=== PATIENT | male | born 1950 | race Caucasian/White ===

== ENCOUNTER → 2017-03-10 | Outpatient (CLI) | payer MEDICARE, BC ==
[~2017-03-10] MED LIST: ASPIRIN1 GM PO; ASPIRIN81 M1; CRESTOR10 MG; METOPROLOL TAR25 MG PO; PIROXICAM10 MG; PLAVIX PO; REMICADE IV; ZESTRIL10 M1 PO; ZETIA PO
--- NOTE | ~2017-03-10 | CR184 ---
[facility] A Service of [facility] RADIOLOGY TEXT RESULTS PATIENT: NORMAN VERA [facility]: [id number] : [birth year] UNIT #: [id number] AGE: [address]: Jerica Menendez MD SEX: M ORDER DR: [id number] [id number] [facility]. [place], [place] [address] [id number] O MR#: [id number] Acc #: [id number] NAME: NORMAN VERA. : 1950 SEX: M STUDY DATE/TIME: 03/10/2017 11:57 UNIT: [facility] ROOM: STUDY DESCRIPTION: CR Lumbar Spine Min 4 Views Attending Physician: Jerica Menendez M.D. Referring Physician: Jerica Menendez M.D. Ordering Physician: Jerica Menendez M.D. Primary Care Physician: Jerica Menendez M.D. MEDICAL IMAGING REPORT This report is preliminary unless electronic signature is present EXAM Lumbar series 03/10/2017 INDICATIONS 66-year-old male with radiculopathy. Low back spasms ran into both legs. Pain for 2 months. TECHNIQUE Coned-down lateral and lateral frontal and flexion/extension views performed. COMPARISON STUDIES No comparisons. FINDINGS Alignment and vertebral body heights maintained. There is degenerative disc disease at L5-S1. There is at least jiwy-qt-kzrhoivd facet arthropathy L4-L5 and L5-S1. No acute fracture. Flexion and extension views demonstrate no significant subluxation. Aorta demonstrates atherosclerotic change and is aneurysmal measuring up to 3.3 cm at the L2 level. This could be further assessed with cross-sectional imaging when clinically appropriate. IMPRESSION 1. Degenerative changes of the lumbar spine but no acute fracture or malalignment. 2. No evidence of subluxation with flexion or extension. 3. Aneurysmal dilatation of the aorta. Dictated by... Michael Land M.D. [facility] A Service of [facility] RADIOLOGY TEXT RESULTS PATIENT: NORMAN VERA [facility]ATION: [facility] #: [id number] : [birth year] UNIT #: [id number] AGE: [address]: Jerica Menendez MD SEX: M ORDER DR: THIS IS AN ELECTRONICALLY VERIFIED REPORT Michael Land M.D. at 03/13/2017 9:09 AM YUAN/nikki TD: 03/10/2017 22:23 JOB #: [id number] MEDICAL IMAGING REPORT Page 1 of 1 COPY
== END | disposition home or self-care (01) ==
LOC: CRAD 11:32
DX: M51.16 Intervertebral disc disorders with radiculopathy, lumbar region (principal); I71.9 Aortic aneurysm of unspecified site, without rupture
CPT/HCPCS: 72110

== ENCOUNTER → 2017-03-17 | Outpatient (CLI) | payer MEDICARE, BC ==
--- NOTE | ~2017-03-17 | US10 ---
[id number] [facility] [address]. [place], [place] [address] [id number] O MR#: [id number] [facility] #: [id number] NAME: NORMAN VERA : 1950 SEX: M STUDY DATE/TIME: 03/17/2017 7:47 UNIT: [facility] ROOM: STUDY DESCRIPTION: US Aorta Complete Attending Physician: Jerica Menendez M.D. Referring Physician: Jerica Menendez M.D. Ordering Physician: Jerica Menendez M.D. Primary Care Physician: Jerica Menendez M.D. MEDICAL IMAGING REPORT This report is preliminary unless electronic signature is present EXAM Abdominal aortic duplex HISTORY Screening for abdominal aortic aneurysm, AAA seen on x-ray last week. No pain or discomfort. FINDINGS Duplex imaging of the abdominal aorta was performed. The proximal aorta is patent with the measurements of 2.3 x 2.4 cm. The mid abdominal aorta is patent with a diameter of 2.5 cm maximally. The distal aorta is patent with a diameter of 2 cm. Right and left iliac arteries are patent with diameters of 1 cm on the right and 1.1 cm on the left. IMPRESSION Normal abdominal aortic duplex with a maximal diameter of 2.5 cm. Proximal iliac arteries are normal. Dictated by... Theodore Chavarria M.D. THIS IS AN ELECTRONICALLY VERIFIED REPORT Theodore Chavarria M.D. at 03/22/2017 9:59 AM /yadira TD: 03/18/2017 07:00 JOB #: [id number] MEDICAL IMAGING REPORT Page 1 of 1 COPY
--- NOTE | ~2017-03-17 | MR113 ---
[facility] A Service of [facility] & [facility] RADIOLOGY TEXT RESULTS PATIENT: NORMAN VERA LOCATION: [facility] : 46 UNIT #: [id number] AGE: [address]: Jerica Menendez MD SEX: M ORDER DR: [id number] [facility] [address] [place], [place] [address] [id number] O MR#: [id number] Acc #: [id number] NAME: NORMAN VERA. : 1950 SEX: M STUDY DATE/TIME: 03/17/2017 8:22 UNIT: [facility] ROOM: STUDY DESCRIPTION: MR Lumbar Wo Contrast Attending Physician: Jerica Menendez M.D. Referring Physician: Jerica Menendez M.D. Ordering Physician: Jerica Menendez M.D. Primary Care Physician: Jerica Menendez M.D. MRI CENTER REPORT This report is preliminary unless electronic signature is present. EXAM MRI of the lumbar spine without contrast dated 03/17/1970. COMPARISON Plain films lumbar spine dated 03/10/2017. HISTORY Weakness and tingling in buttocks, hips and down the legs for 3-4 weeks. Difficulty getting up from sitting position. TECHNIQUE Multisequence multiplanar imaging of the lumbar spine was obtained without contrast. FINDINGS Vertebral body heights and alignment are preserved. Degenerative disc disease is noted from L2-L3 to L5-S1. Conus terminates at T12-L1. Signal of conus and cauda equina are within normal limits. Pre- and paravertebral soft tissues do not demonstrate any significant abnormality. There is minimal leftward curvature of the lumbar spine with the apex at L4. L1-L2: Concentric disc bulge with small bilateral foraminal to extra-foraminal broad-based protrusions and mild left facet hypertrophic change. No canal stenosis. Minimal left neural foraminal encroachment. L2-L3: Moderate concentric disc bulge with superimposed bilateral foraminal to extra-foraminal broad-based protrusions and mild bilateral neural foraminal narrowing. Mild bilateral facet changes are noted with borderline-sized to mild canal stenosis. L3-L4: Moderate disc bulge with superimposed bilateral foraminal to STS. [facility] A Service of [facility] & [facility] RADIOLOGY TEXT RESULTS PATIENT: NORMAN VERA LOCATION: [facility] : 46 UNIT #: [id number] AGE: [address]: Jerica Menendez MD SEX: M ORDER DR: extra-foraminal broad-based protrusions. Ryra-oa-kytbpoou right and mild left facet hypertrophic changes are noted with borderline-sized canal. Mild right and rlrj-vo-jrcnejea left neural foraminal narrowing are noted with mild left lateral recess encroachment. L4-L5: Moderate disc bulge with moderate right and mild left facet hypertrophic changes. Mild bilateral neural foraminal narrowing is seen with borderline-sized canal. L5-S1: Moderate disc bulge with superimposed cbcys-pg-wniz central protrusion. There is also left subarticular to left extra-foraminal broad-based protrusion which impinges on the left S1 nerve root. No canal stenosis. Hgqo-hf-mbwwmhth left neural foraminal narrowing. IMPRESSION 1. Degenerative changes are noted at multiple levels, relatively worse at L5-S1 and L3-L4 followed by L2-L3, as described above. 2. Correlate with the left S1, left L5 radiculopathy. There is probably some impingement of bilateral L3 nerve roots, particularly on the left. Dictated by... Lino Galarza M.D. THIS IS AN ELECTRONICALLY VERIFIED REPORT Lino Galarza M.D. at 03/19/2017 9:14 PM CPR/pcl TD: 03/17/2017 21:23 JOB #: [id number] MRI CENTER REPORT Page 1 of 1 COPY
== END | disposition home or self-care (01) ==
LOC: CGUS 07:15
DX: I71.4 Abdominal aortic aneurysm, without rupture (principal); M54.16 Radiculopathy, lumbar region; M47.26 Other spondylosis with radiculopathy, lumbar region
CPT/HCPCS: 72148; 76770